=== PATIENT | male | born 1980 | race African-American/Black ===

== ENCOUNTER 2017-06-28 18:51 | Emergency (ER) | payer OTHER ==
[2017-06-28 19:23] VITALS: BP 151/74; PULSE 95; RESP 18; TEMP 99.7
--- NOTE | 2017-06-28 19:33 | ED ---
General Adult HPI - General Chief complaint: Skin/Abscess/Foreign Body Stated complaint: Inhaled Peanuts Time Seen by Provider: 06/28/17 19:25 Source: patient, RN notes reviewed Mode of arrival: ambulatory Limitations: no limitations - History of Present Illness Initial comments: 36 -year-old male presents to the emergency department with a chief complaint of concern for possible inhaled the neck. Patient states he was eating peanuts and he feels that he inhaled a peanut. Having no symptoms now cough no shortness of breath. He feels a little bit of throat irritation. No difficulty eating or drinking. Patient states that he was concerned that he may have an of the penis without that he should be seen.Patient denies any recent fever, chills, shortness of breath, chest pain, back pain, abdominal pain , nausea vomiting, numbness or tingling, dysuria or hematuria, constipation or diarrhea, headaches or visual changes, or any other current symptoms. - Related Data Allergies Allergy/AdvReac Type Severity Reaction Status Date / Time No Known Allergies Allergy Verified 06/28/17 19:17 Review of Systems ROS Statement: Those systems with pertinent positive or pertinent negative responses have been documented in the HPI. ROS Other: All systems not noted in ROS Statement are negative. Past Medical History Past Medical History: No Reported History, Sleep Apnea/CPAP/BIPAP History of Any Multi-Drug Resistant Organisms: None Reported Past Surgical History: Cholecystectomy Past Psychological History: Anxiety Smoking Status: Current every day smoker Past Alcohol Use History: None Reported Past Drug Use History: Marijuana General Exam Limitations: no limitations General appearance: alert, in no apparent distress Eye exam: Present: normal appearance, PERRL, EOMI. Absent: scleral icterus, conjunctival injection, periorbital swelling ENT exam: Present: normal exam, mucous membranes moist Neck exam: Present: normal inspection. Absent: tenderness, meningismus, lymphadenopathy Respiratory exam: Present: normal lung sounds bilaterally. Absent: respiratory distress, wheezes, rales, rhonchi, stridor Cardiovascular Exam: Present: regular rate, normal rhythm, normal heart sounds. Absent: systolic murmur, diastolic murmur, rubs, gallop, clicks Neurological exam: Present: alert, oriented X3 Psychiatric exam: Present: normal affect, normal mood Skin exam: Present: warm, dry, intact, normal color. Absent: rash Course Vital Signs 11/21/17 19:17 Temperature 99.7 F H Pulse Rate 95 Respiratory 18 Rate Blood Pressure 151/74 O2 Sat by Pulse 100 Oximetry Medical Decision Making - Medical Decision Making 36-year-old male presents emergency Department chief complaint of concern for an health unit. This time patient is asymptomatic no difficulty in breathing patient's x-rays reviewed and negative. We did discuss we cannot see this type of forgein body on x-ray typically. This time we discussed what to watch for. We discussed possible outcomes from this type of injury. We did discuss return parameters and follow-up with the patient. He stated that he understood and all his questions have been answered. This and will be discharged home. - Radiology Data Radiology results: report reviewed, image reviewed Disposition Clinical Impression: Throat irritation Disposition: HOME SELF-CARE Condition: Stable Instructions: Foreign Body in Pharynx (ED) Additional Instructions: Please use medication as discussed. Please follow up with family doctor if symptoms have not improved over the next two days. Please return to the emergency room if your symptoms increase or worsen or for any other concerns. Referrals: Gustavo Dumont MD [Primary Care Provider] - 1-2 days Time of Disposition: 19:46
--- NOTE | 2017-06-28 19:42 | XR ---
EXAMINATION TYPE: XR chest 2V DATE OF EXAM: 06/28/2017 COMPARISON: NONE HISTORY: Cough TECHNIQUE: Frontal and lateral views of the chest are obtained. FINDINGS: Heart and mediastinum are normal. Lungs are clear. Diaphragm is normal. Bony thorax is int act. There is no evidence of atelectasis. IMPRESSION: Normal chest
== END 2017-06-28 20:02 | disposition home or self-care (01) ==
LOC: EC 18:51
DX: J39.2 Other diseases of pharynx (principal); F17.200 Nicotine dependence, unspecified, uncomplicated
CPT/HCPCS: 71020; 99283

== ENCOUNTER 2018-06-16 08:13 | Emergency (ER) | payer OTHER ==
[2018-06-16 08:28] VITALS: TEMP 96.6
[2018-06-16] MEDS ORDERED: ONDANSETRON 4 MG/2 ML VIAL IVP STA (08:34)
[2018-06-16] MEDS ORDERED: SODIUM CHLORIDE 0.9% 1,000 ML IV STA (08:34)
[2018-06-16] MEDS ORDERED: KETOROLAC 30 MG/ML 1 ML VIAL IVP STA (08:34)
[2018-06-16] MEDS ORDERED: MORPHINE SULFATE 4 MG/ML SYRINGE IV STA (08:34)
--- NOTE | 2018-06-16 08:58 | ED ---
General Adult HPI - General Chief complaint: Abdominal Pain Stated complaint: Blood in urine Time Seen by Provider: 06/16/18 08:29 Source: patient, RN notes reviewed Mode of arrival: ambulatory Limitations: no limitations - History of Present Illness Initial comments: Patient 37-year-old male presented to the emergency room today with chief complaint of right sided flank pain starting this morning. He has not that he saw some hematuria yesterday. States pain started this morning is had some nausea. She states never had similar symptoms in the past. Patient denies any recent fever, chills, shortness of breath, chest pain, numbness or tingling, dysuria, headaches or visual changes, or any other complaints. - Related Data Home Medications Medication Instructions Recorded Confirmed Atorvastatin Calcium [Lipitor] 10 mg PO HS 06/16/18 06/16/18 Catalyn Vit (Unknown) 1 tab PO TID 06/16/18 HYDROcodone/APAP 10-325MG [Jeffers 1 tab PO QID 06/16/18 06/16/18 10-325] Losartan/Hydrochlorothiazide 1 tab PO DAILY 06/16/18 06/16/18 [Losartan-Hctz 100-12.5 mg Tab] Temazepam [Restoril] 15 mg PO HS 06/16/18 06/16/18 diphenhydrAMINE HCL [Benadryl] 50 mg PO HS 06/16/18 06/16/18 Previous Rx's Medication Instructions Recorded Hydrocodone/Acetaminophen [Jeffers 1 each PO Q6HR PRN #12 tab 06/16/18 5-325] Ibuprofen [Motrin] 800 mg PO Q6HR #30 tab 06/16/18 Ondansetron Odt [Zofran ODT] 4 mg PO Q8HR PRN #20 tab 06/16/18 Tamsulosin [Flomax] 0.4 mg PO DAILY #10 cap 06/16/18 Allergies Allergy/AdvReac Type Severity Reaction Status Date / Time No Known Allergies Allergy Verified 06/16/18 10:05 Review of Systems ROS Statement: Those systems with pertinent positive or pertinent negative responses have been documented in the HPI. ROS Other: All systems not noted in ROS Statement are negative. Past Medical History Past Medical History: Hyperlipidemia, Hypertension, Sleep Apnea/CPAP/BIPAP History of Any Multi-Drug Resistant Organisms: None Reported Past Surgical History: Cholecystectomy Past Psychological History: Anxiety Smoking Status: Current every day smoker Past Alcohol Use History: None Reported Past Drug Use History: Marijuana General Exam - General Exam Comments Initial Comments: General: The patient is awake and alert, in no distress, and does not appear acutely ill. Eye: There is normal conjunctiva bilaterally. No signs of icterus. Ears, nose, mouth and throat: There are moist mucous membranes and no oral lesions. Neck: The neck is supple, there is no tenderness or JVD. Cardiovascular: There is a regular rate and rhythm. No murmur, rub or gallop is appreciated. Respiratory: Lungs are clear to auscultation, respirations are non-labored, breath sounds are equal. No wheezes, stridor, rales, or rhonchi. Gastrointestinal: Soft, non-distended, non-tender abdomen without masses or organomegaly noted. There is no rebound or guarding present. No CVA tenderness. Musculoskeletal: Normal ROM, no tenderness. Sensation intact. Neurological: A&O x 3. CN II-XII intact, There are no obvious motor or sensory deficits. Coordination appears grossly intact. Speech is normal. Skin: Skin is warm and dry and no rashes or lesions are noted. Psychiatric: Cooperative, appropriate mood & affect, normal judgment. Limitations: no limitations Course Vital Signs 06/16/18 08:25 Temperature 96.6 F L Pulse Rate 69 Respiratory 22 Rate Blood Pressure 166/91 O2 Sat by Pulse 97 Oximetry Medical Decision Making - Medical Decision Making Patient reexamined at this time shows no signs of distress. He currently pain- free at this time. CT abdomen and pelvis reviewed does show a 3 mm stone in the right UPJ. Patient's urinalysis reviewed shows large blood. There are 6 white cells. Cultures pending. Patient's vitals are stable. There is no fever. Patient will be discharged home on Flomax, nausea medication, and pain medicines. Patient is advised follow-up urologist over the next 2 days of symptoms have not improved. Advised return if symptoms increase or worsen. - Lab Data Result diagrams: 06/16/18 09:15 06/16/18 09:15 Lab Results 06/16/18 06/16/18 06/16/18 Range/Units 09:08 09:15 09:15 WBC 9.1 (3.8-10.6) k/uL RBC 5.43 (4.30-5.90) m/uL Hgb 16.2 (13.0-17.5) gm/dL Hct 47.5 (39.0-53.0) % MCV 87.5 (80.0-100.0) fL MCH 29.8 (25.0-35.0) pg MCHC 34.1 (31.0-37.0) g/dL RDW 13.1 (11.5-15.5) % Plt Count 269 (150-450) k/uL Neutrophils % 61 % Lymphocytes % 25 % Monocytes % 5 % Eosinophils % 6 % Basophils % 1 % Neutrophils # 5.6 (1.3-7.7) k/uL Lymphocytes # 2.3 (1.0-4.8) k/uL Monocytes # 0.4 (0-1.0) k/uL Eosinophils # 0.6 (0-0.7) k/uL Basophils # 0.1 (0-0.2) k/uL Sodium 139 (137-145) mmol/L Potassium 4.0 (3.5-5.1) mmol/L Chloride 110 H (98-107) mmol/L Carbon Dioxide 16 L (22-30) mmol/L Anion Gap 13 mmol/L BUN 17 (9-20) mg/dL Creatinine 1.24 (0.66-1.25) mg/dL Est GFR (CKD-EPI)AfAm 85 (>60 ml/min/1.73 sqM) Est GFR (CKD-EPI)NonAf 73 (>60 ml/min/1.73 sqM) Glucose 115 H (74-99) mg/dL Calcium 10.0 (8.4-10.2) mg/dL Total Bilirubin 0.8 (0.2-1.3) mg/dL AST 24 (17-59) U/L ALT 20 L (21-72) U/L Alkaline Phosphatase 65 (38-126) U/L Total Protein 7.3 (6.3-8.2) g/dL Albumin 4.5 (3.5-5.0) g/dL Amylase 65 (30-110) U/L Lipase 117 (23-300) U/L Urine Color Red Urine Appearance Cloudy (Clear) Urine pH 5.5 (5.0-8.0) Ur Specific [place] 1.022 (1.001-1.035) Urine Protein 1+ H (Negative) Urine Glucose (UA) Negative (Negative) Urine Ketones 2+ H (Negative) Urine Blood Large H (Negative) Urine Nitrite Negative (Negative) Urine Bilirubin Negative (Negative) Urine Urobilinogen <2.0 (<2.0) mg/dL Ur Leukocyte Esterase Small H (Negative) Urine RBC >182 H (0-5) /hpf Urine WBC 6 H (0-5) /hpf Ur Squamous Epith Cells 2 (0-4) /hpf Calcium Oxalate Crystal Few H (None) /hpf Urine Mucus Occasional H (None) /hpf Disposition Clinical Impression: Kidney stone Disposition: HOME SELF-CARE Condition: Good Instructions: Kidney Stones (ED) Additional Instructions: Please use medication as discussed. Please follow-up with urology/family doctor in the next 2 days of symptoms have not improved. Please return to emergency room if the symptoms increase or worsen or for any other concerns. Prescriptions: Hydrocodone/Acetaminophen [Jeffers 5-325] 1 each PO Q6HR PRN #12 tab PRN Reason: Pain Ibuprofen [Motrin] 800 mg PO Q6HR #30 tab Ondansetron Odt [Zofran ODT] 4 mg PO Q8HR PRN #20 tab PRN Reason: Nausea Tamsulosin [Flomax] 0.4 mg PO DAILY #10 cap Is patient prescribed a controlled substance at d/c from ED?: Yes If prescribed controlled substance>3 days was MAPS reviewed?: Prescribed <3 Days Referrals: Gustavo Dumont MD [Primary Care Provider] - 1-2 days Bandar Mohan MD [STAFF PHYSICIAN] - 1-2 days Time of Disposition: 10:35
[2018-06-16 09:36] LABS: Basophils # (A) 0.1 k/uL (0-0.2); Basophils % (A) 1 %; Eosinophils # (A) 0.6 k/uL (0-0.7); Eosinophils % (A) 6 %; HCT 47.5 % (39.0-53.0); HGB 16.2 gm/dL (13.0-17.5); Lymphocytes # (A) 2.3 k/uL (1.0-4.8); Lymphocytes % (A) 25 %; MCH 29.8 pg (25.0-35.0); MCHC 34.1 g/dL (31.0-37.0); MCV 87.5 fL (80.0-100.0); Mean Platelet Volume 7.1; Monocytes # (A) 0.4 k/uL (0-1.0); Monocytes % (A) 5 %; Neutrophils # (A) 5.6 k/uL (1.3-7.7); Neutrophils % (A) 61 %; Platelet Count 269 k/uL (150-450); RBC 5.43 m/uL (4.30-5.90); RDW 13.1 % (11.5-15.5); WBC 9.1 k/uL (3.8-10.6)
--- NOTE | 2018-06-16 09:38 | XR ---
EXAMINATION TYPE: XR KUB DATE OF EXAM: 06/16/2018 COMPARISON: NONE HISTORY: Pain TECHNIQUE: One view abdominal series FINDINGS: The osseous structures are intact. The bowel gas pattern is nonspecific. Lung bases are clear. Surg ical clips in the right upper quadrant. Few prominent small bowel loops are seen in the right abdomen . Benign-appearing cyst herniation pit involving the right femoral head. No definite suspicious calci fications. IMPRESSION: 1. Nonspecific abdomen. Few prominent small bowel loops in the right abdomen correlate for ileus or enteritis. 2. No definite suspicious calcifications. Correlate with CT scan as clinically warranted.
[2018-06-16 09:47] LABS: Albumin 4.5 g/dL (3.5-5.0); Total Bilirubin 0.8 mg/dL (0.2-1.3); Total Protein 7.3 g/dL (6.3-8.2)
[2018-06-16 09:56] LABS: Appearance,Urine Cloudy (Clear); Bilirubin,Urine Negative (Negative); Blood,Urine Large (Negative); Calcium Oxalate Crystals,Urine Few /hpf; Color,Urine Red; Glucose,Urine (UA) Negative (Negative); Ketones,Urine 2+ (Negative); Leukocyte Esterase,Urine Small (Negative); Mucus,Urine Occasional /hpf; Nitrite,Urine Negative (Negative); PH, Urine 5.5 (5.0-8.0); Protein,Urine 1+ (Negative); RBC,Urine >182 /hpf (0-5); Specific Gravity,Urine 1.022 (1.001-1.035); Squamous Epithelial Cell,Urine 2 /hpf (0-4); Urobilinogen,Urine <2.0 mg/dL (<2.0)
--- NOTE | 2018-06-16 09:58 | CT ---
EXAMINATION TYPE: CT abdomen pelvis w con DATE OF EXAM: 06/16/2018 COMPARISON: None HISTORY: abdomen pain RT side CT DLP: 2609 mGycm CONTRAST: CT scan of the abdomen and pelvis is performed without Oral Contrast and with IV Contrast, patient in jected with 100 mL of Isovue 300. FINDINGS: LUNG BASES-: No visible nodule. No infiltrate. LIVER/GB: No calcified gallstones. No space occupying hepatic lesion. Biliary tree is of normal ca liber. PANCREAS: No inflammation. No distinct mass. SPLEEN: No splenic enlargement. No lesion seen. ADRENALS: No nodule. No thickening. KIDNEYS/BLADDER: 3 mm calculus proximal left ureter just distal to the UPJ resulting in mild hydronep hrosis. Mild delay in excretion right kidney. No additional calculi seen. No distinct renal mass. Ur inary bladder grossly unremarkable. BOWEL: Normal appendix. Normal bowel caliber. No inflammation. GENITAL ORGANS: No gross abnormality. LYMPH NODES: No greater than 1cm abdominal or pelvic lymph nodes are appreciated. AORTA: No significant abnormality. OSSEOUS STRUCTURES: Degenerative changes lumbar spine. OTHER: No significant additional abnormality is seen. IMPRESSION: 1. 3 mm calculus proximal left ureter just distal to the UPJ resulting in mild hydronephrosis. Mild delay in excretion right kidney.
[2018-06-16 10:40] VITALS: BP 150/81; PULSE 75; RESP 20
== END 2018-06-16 10:47 | disposition home or self-care (01) ==
LOC: EC 08:13
DX: N20.2 Calculus of kidney with calculus of ureter (principal); E78.5 Hyperlipidemia, unspecified; I10 Essential (primary) hypertension; G47.30 Sleep apnea, unspecified; F17.200 Nicotine dependence, unspecified, uncomplicated; Z79.891 Long term (current) use of opiate analgesic; Z79.899 Other long term (current) drug therapy; Z99.89 Dependence on other enabling machines and devices; Z90.49 Acquired absence of other specified parts of digestive tract
CPT/HCPCS: 36415; 80053; 82150; 83690; 85025; 81001; 87086; 74018; 74177; 99284; 96374; 96375 ×2; 96361; J2270; J2405; J1885; Q9967

== ENCOUNTER 2019-09-15 12:55 | Emergency (ER) | payer OTHER ==
[2019-09-15 13:05] VITALS: TEMP 97.3
[2019-09-15] MEDS ORDERED: ONDANSETRON 4 MG/2 ML VIAL IVP STA (13:16)
[2019-09-15] MEDS ORDERED: MORPHINE SULFATE 4 MG/ML SYRINGE IV STA (13:16)
--- NOTE | 2019-09-15 13:33 | ED ---
General Adult HPI - General Chief complaint: Abdominal Pain Stated complaint: right leg numbness/abd pain Time Seen by Provider: 09/15/19 12:55 Source: patient Mode of arrival: wheelchair Limitations: no limitations - History of Present Illness Initial comments: The patient is a 39-year-old male with past medical history of hypertension, not currently on medications who presents to the emergency room with reported right leg numbness. Also admits to mild right arm numbness. Patient states that his leg has felt heavy for the past hour. He is also complaining of abdominal pain. States that it is a sharp shooting sensation in his abdomen. Denies tearing to his back. Denies any chest pain or shortness of breath. Denies any headaches or visual changes. No fevers or chills. Denies cough. Does admit to mild shortness of breath. Any changes in his bowel or bladder habits. Did have a towel movement before he came in. He has a history of hypertension and is not taking his medications. Patient denies extremity diaphoretic. He is extremely hypertensive and is difficult to obtain a blood pressure in his right arm. There are no alleviating, precipitating or modifying factors - Related Data Home Medications Medication Instructions Recorded Confirmed Atorvastatin Calcium [Lipitor] 10 mg PO HS 06/16/18 06/16/18 Catalyn Vit (Unknown) 1 tab PO TID 06/16/18 HYDROcodone/APAP 10-325MG [[place] 1 tab PO QID 06/16/18 06/16/18 10-325] Losartan/Hydrochlorothiazide 1 tab PO DAILY 06/16/18 06/16/18 [Losartan-Hctz 100-12.5 mg Tab] Temazepam [Restoril] 15 mg PO HS 06/16/18 06/16/18 diphenhydrAMINE HCL [Benadryl] 50 mg PO HS 06/16/18 06/16/18 Previous Rx's Medication Instructions Recorded Hydrocodone/Acetaminophen [[place] 1 each PO Q6HR PRN #12 tab 06/16/18 5-325] Ibuprofen [Motrin] 800 mg PO Q6HR #30 tab 06/16/18 Ondansetron Odt [Zofran ODT] 4 mg PO Q8HR PRN #20 tab 06/16/18 Tamsulosin [Flomax] 0.4 mg PO DAILY #10 cap 06/16/18 Allergies Allergy/AdvReac Type Severity Reaction Status Date / Time No Known Allergies Allergy Verified 06/16/18 10:05 Review of Systems ROS Statement: Those systems with pertinent positive or pertinent negative responses have been documented in the HPI. ROS Other: All systems not noted in ROS Statement are negative. Past Medical History Past Medical History: Hyperlipidemia, Hypertension, Sleep Apnea/CPAP/BIPAP History of Any Multi-Drug Resistant Organisms: None Reported Past Surgical History: Cholecystectomy Past Psychological History: Anxiety Smoking Status: Current every day smoker Past Alcohol Use History: None Reported Past Drug Use History: Marijuana General Exam Limitations: no limitations General appearance: alert, anxious, other (Extremity diaphoretic) Head exam: Present: atraumatic, normocephalic, normal inspection Eye exam: Present: normal appearance, PERRL, EOMI. Absent: scleral icterus, conjunctival injection, periorbital swelling ENT exam: Present: normal exam, mucous membranes moist Neck exam: Present: normal inspection. Absent: tenderness, meningismus, lymphadenopathy Respiratory exam: Present: normal lung sounds bilaterally, other (tachypneic). Absent: respiratory distress, wheezes, rales, rhonchi, stridor Cardiovascular Exam: Present: regular rate, normal rhythm, bradycardia, normal heart sounds. Absent: systolic murmur, diastolic murmur, rubs, gallop, clicks GI/Abdominal exam: Present: soft, tenderness (Upper quadrant). Absent: distended, guarding, rebound, rigid Extremities exam: Present: other (no palpable or doppler pulses in his DP, PT, popliteals or even iliacs. Bilateral lower extremity is or warm to the touch.) Back exam: Present: normal inspection Course Vital Signs 09/15/19 09/15/19 09/15/19 12:56 14:03 14:06 Temperature 97.3 F L Pulse Rate 54 L 58 L 60 Respiratory 40 H 18 20 Rate Blood Pressure 227/66 O2 Sat by Pulse 100 100 100 Oximetry 09/15/19 09/15/19 09/15/19 14:19 14:38 14:45 Temperature Pulse Rate 68 65 71 Respiratory 20 18 22 Rate Blood Pressure 161/71 O2 Sat by Pulse 99 100 100 Oximetry 09/15/19 09/15/19 09/15/19 14:55 15:03 15:07 Temperature Pulse Rate 73 68 68 Respiratory 22 18 Rate Blood Pressure 200/177 187/63 O2 Sat by Pulse 100 100 Oximetry 09/15/19 09/15/19 09/15/19 15:09 15:15 15:21 Temperature Pulse Rate 71 67 70 Respiratory 18 18 Rate Blood Pressure 183/59 180/97 156/58 O2 Sat by Pulse 100 100 100 Oximetry 09/15/19 09/15/19 09/15/19 15:28 15:31 15:36 Temperature Pulse Rate 68 69 70 Respiratory 16 18 181 H Rate Blood Pressure 154/100 162/64 158/65 O2 Sat by Pulse 100 99 Oximetry 09/15/19 15:50 Temperature Pulse Rate 73 Respiratory Rate Blood Pressure 146/73 O2 Sat by Pulse 100 Oximetry EKG Findings - EKG Comments: EKG Findings:: EKG demonstrates a sinus bradycardia with ventricular rate of 58. NM interval 156. QRS 98. QTC of 418. Inverted T waves in 1, 2 and aVF. Also in V5 and V6. No acute ST segment elevations. Procedures - Arterial Line No standard instances Consent Obtained: emergent situation Size (Gauge): 20 Technique Used: guide wire technique Post-Procedure: line sutured into place Patient Tolerated Procedure: well, no complications Complications: none Medical Decision Making - Medical Decision Making Upon arrival the patient was promptly placed in trauma bay 1. A history and physical exam is performed. He does not have palpable pulses in his bilateral lower extremities. Because of this I immediately sent the patient over for CT of his abdomen and pelvis. Upon return I did review the images myself and it does demonstrate a type A dissection. Patient was immediately placed on a Cardene and esmolol drip. We did titrate the medications however the patient continues have an elevated blood pressure. I then ordered a nitroprusside drip. I placed a radial line and the patient's left arm. Discussed the case with Glynn Henderson at 2:05 pm. Patient is refused as the cardiothoracic surgeon is in the OR. Discuss the case with [facility] at 2:11 pm. Patient is refused as I am told they do not take Type A dissections. Discussed the case with [facility] at 2:21 pm and they stated that they were unsure if they could take the patient and they will call us back The case with [facility] who accepted the patient. Accepting Doctor is Dr. Inman. EMS arrived and felt the patients status was more critical that what they felt comfortable with. They are requesting a nurse to travel with them. Chata the charge nurse does agree to help transport the patient. Patient sent lights and sirens there. - Lab Data Result diagrams: 09/15/19 13:19 09/15/19 13:19 Lab Results 09/15/19 09/15/19 09/15/19 Range/Units 13:15 13:19 13:19 WBC 12.4 H (3.8-10.6) k/uL RBC 5.24 (4.30-5.90) m/uL Hgb 15.7 (13.0-17.5) gm/dL Hct 48.3 (39.0-53.0) % MCV 92.3 (80.0-100.0) fL MCH 30.1 (25.0-35.0) pg MCHC 32.6 (31.0-37.0) g/dL RDW 13.5 (11.5-15.5) % Plt Count 202 (150-450) k/uL Neutrophils % 58 % Lymphocytes % 28 % Monocytes % 3 % Eosinophils % 7 % Basophils % 2 % Neutrophils # 7.1 (1.3-7.7) k/uL Lymphocytes # 3.4 (1.0-4.8) k/uL Monocytes # 0.4 (0-1.0) k/uL Eosinophils # 0.8 H (0-0.7) k/uL Basophils # 0.2 (0-0.2) k/uL PT (9.0-12.0) sec INR (<1.2) APTT (22.0-30.0) sec Sodium 138 (137-145) mmol/L Potassium 3.3 L (3.5-5.1) mmol/L Chloride 107 (98-107) mmol/L Carbon Dioxide 16 L (22-30) mmol/L Anion Gap 15 mmol/L BUN 10 (9-20) mg/dL Creatinine 1.28 H (0.66-1.25) mg/dL Est GFR (CKD-EPI)AfAm 80 (>60 ml/min/1.73 sqM) Est GFR (CKD-EPI)NonAf 69 (>60 ml/min/1.73 sqM) Glucose 167 H (74-99) mg/dL Lactic Ac Sepsis Rflx Plasma Lactic Acid Ibrahima (0.7-2.0) mmol/L Calcium 9.7 (8.4-10.2) mg/dL Total Bilirubin 0.9 (0.2-1.3) mg/dL AST 37 (17-59) U/L ALT 19 (4-49) U/L Alkaline Phosphatase 79 (38-126) U/L Troponin I (0.000-0.034) ng/mL Total Protein 7.2 (6.3-8.2) g/dL Albumin 4.5 (3.5-5.0) g/dL Lipase 121 (23-300) U/L Blood Type Blood Type Confirm B Positive Blood Type Recheck Bld Type Recheck Status Antibody Screen Spec Expiration Date 09/15/19 09/15/19 09/15/19 Range/Units 13:19 13:19 13:19 WBC (3.8-10.6) k/uL RBC (4.30-5.90) m/uL Hgb (13.0-17.5) gm/dL Hct (39.0-53.0) % MCV (80.0-100.0) fL MCH (25.0-35.0) pg MCHC (31.0-37.0) g/dL RDW (11.5-15.5) % Plt Count (150-450) k/uL Neutrophils % % Lymphocytes % % Monocytes % % Eosinophils % % Basophils % % Neutrophils # (1.3-7.7) k/uL Lymphocytes # (1.0-4.8) k/uL Monocytes # (0-1.0) k/uL Eosinophils # (0-0.7) k/uL Basophils # (0-0.2) k/uL PT 9.8 (9.0-12.0) sec INR 0.9 (<1.2) APTT 22.4 (22.0-30.0) sec Sodium (137-145) mmol/L Potassium (3.5-5.1) mmol/L Chloride (98-107) mmol/L Carbon Dioxide (22-30) mmol/L Anion Gap mmol/L BUN (9-20) mg/dL Creatinine (0.66-1.25) mg/dL Est GFR (CKD-EPI)AfAm (>60 ml/min/1.73 sqM) Est GFR (CKD-EPI)NonAf (>60 ml/min/1.73 sqM) Glucose (74-99) mg/dL Lactic Ac Sepsis Rflx Plasma Lactic Acid Ibrahima 8.8 H* (0.7-2.0) mmol/L Calcium (8.4-10.2) mg/dL Total Bilirubin (0.2-1.3) mg/dL AST (17-59) U/L ALT (4-49) U/L Alkaline Phosphatase (38-126) U/L Troponin I 0.019 (0.000-0.034) ng/mL Total Protein (6.3-8.2) g/dL Albumin (3.5-5.0) g/dL Lipase (23-300) U/L Blood Type Blood Type Confirm Blood Type Recheck Bld Type Recheck Status Antibody Screen Spec Expiration Date 09/15/19 09/15/19 Range/Units 13:19 13:55 WBC (3.8-10.6) k/uL RBC (4.30-5.90) m/uL Hgb (13.0-17.5) gm/dL Hct (39.0-53.0) % MCV (80.0-100.0) fL MCH (25.0-35.0) pg MCHC (31.0-37.0) g/dL RDW (11.5-15.5) % Plt Count (150-450) k/uL Neutrophils % % Lymphocytes % % Monocytes % % Eosinophils % % Basophils % % Neutrophils # (1.3-7.7) k/uL Lymphocytes # (1.0-4.8) k/uL Monocytes # (0-1.0) k/uL Eosinophils # (0-0.7) k/uL Basophils # (0-0.2) k/uL PT (9.0-12.0) sec INR (<1.2) APTT (22.0-30.0) sec Sodium (137-145) mmol/L Potassium (3.5-5.1) mmol/L Chloride (98-107) mmol/L Carbon Dioxide (22-30) mmol/L Anion Gap mmol/L BUN (9-20) mg/dL Creatinine (0.66-1.25) mg/dL Est GFR (CKD-EPI)AfAm (>60 ml/min/1.73 sqM) Est GFR (CKD-EPI)NonAf (>60 ml/min/1.73 sqM) Glucose (74-99) mg/dL Lactic Ac Sepsis Rflx Y Plasma Lactic Acid Ibrahima (0.7-2.0) mmol/L Calcium (8.4-10.2) mg/dL Total Bilirubin (0.2-1.3) mg/dL AST (17-59) U/L ALT (4-49) U/L Alkaline Phosphatase (38-126) U/L Troponin I (0.000-0.034) ng/mL Total Protein (6.3-8.2) g/dL Albumin (3.5-5.0) g/dL Lipase (23-300) U/L Blood Type B Positive Blood Type Confirm Blood Type Recheck No Previous Record Bld Type Recheck Status CABO Indicated Antibody Screen NEGATIVE Spec Expiration Date 09/18/2019 - 9928 Critical Care Time Critical Care Time: Yes Critical Care Time: 45 minutes. Patients critical status recognized as soon as he was triaged. He was brought to the trauma bay immediately and after physical exam was sent directly for imaging without awaiting labs. Dissection was recognized on scans and I began calling several facilities to accept the patient. I had refusal from [facility] and [facility] prior to receiving acceptance at [facility]. Disposition Clinical Impression: Dissection of aorta Disposition: HOME SELF-CARE Condition: Critical Is patient prescribed a controlled substance at d/c from ED?: No Referrals: Gustavo Dumont MD [Primary Care Provider] - 1-2 days - Out of Hospital Transfer - Req. Specs Out of Hospital Transfer - Requested Specifics: Other Emergency Center ([facility])
[2019-09-15 13:45] LABS: Basophils # (A) 0.2 k/uL (0-0.2); Basophils % (A) 2 %; Eosinophils # (A) 0.8 k/uL (0-0.7); Eosinophils % (A) 7 %; HCT 48.3 % (39.0-53.0); HGB 15.7 gm/dL (13.0-17.5); Lymphocytes # (A) 3.4 k/uL (1.0-4.8); Lymphocytes % (A) 28 %; MCH 30.1 pg (25.0-35.0); MCHC 32.6 g/dL (31.0-37.0); MCV 92.3 fL (80.0-100.0); Mean Platelet Volume 8.5; Monocytes # (A) 0.4 k/uL (0-1.0); Monocytes % (A) 3 %; Neutrophils # (A) 7.1 k/uL (1.3-7.7); Neutrophils % (A) 58 %; Platelet Count 202 k/uL (150-450); RBC 5.24 m/uL (4.30-5.90); RDW 13.5 % (11.5-15.5); WBC 12.4 k/uL (3.8-10.6)
[2019-09-15 13:50] LABS: Albumin 4.5 g/dL (3.5-5.0); Calcium 9.7 mg/dL (8.4-10.2); Total Bilirubin 0.9 mg/dL (0.2-1.3); Total Protein 7.2 g/dL (6.3-8.2)
[2019-09-15] MEDS ORDERED: niCARdipine 20 MG in SODIUM CHLORIDE 0.9% 192 ML IV ONE (13:50)
[2019-09-15] MEDS ORDERED: fentaNYL (PF) 50 MCG/ML 2 ML AMP IVP STA ×2 (13:51→14:51)
[2019-09-15] MEDS ORDERED: ESMOLOL IN SODIUM CHLORIDE PMX 2.5 GM in SALINE 1 250ML.BAG IV ONE (13:52)
[2019-09-15 13:54] LABS: INR 0.9 (<1.2); Partial Thromboplastin Time 22.4 sec (22.0-30.0); Potassium 3.3 mmol/L (3.5-5.1); Prothrombin Time 9.8 sec (9.0-12.0)
--- NOTE | 2019-09-15 14:05 | CT ---
EXAMINATION TYPE: CT brain wo con DATE OF EXAM: 09/15/2019 COMPARISON: None HISTORY: Right leg numbness with lack of pulse. CT DLP: 1169 mGycm Automated exposure control for dose reduction was used. Ventricles have normal size. There is no mass effect nor midline shift. There is no sign of intracran ial hemorrhage. There is mucosal thickening in the maxillary sinuses. Calvarium is intact. There is n o evidence of cerebral edema. IMPRESSION: Negative CT scan of the brain. Maxillary sinusitis. Mild ethmoid sinusitis.
[2019-09-15] MEDS ORDERED: HYDROmorphone 1 MG/ML 1 ML SYRINGE ONE (14:24)
[2019-09-15] MEDS: HYDROmorphone 1 MG/ML 1 ML SYRINGE IVP PRN ×2 (14:25→14:29)
--- NOTE | 2019-09-15 14:36 | CT ---
EXAMINATION TYPE: CT angio thor/abd pel aorta DATE OF EXAM: 09/15/2019 COMPARISON: None HISTORY: Abdominal pain with Loss of pulse Right leg. CT DLP: 4500.4 mGycm Automated exposure control for dose reduction was used. CONTRAST: Performed without and with IV Contrast, patient injected with 100 mL of Isovue 370. Multiple axial sections were obtained from the thoracic inlet to the floor the pelvis without and sub sequently with intravenous contrast Isovue 100 mL. 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 There is no mediastinal adenopathy. There is lucent line within the lumen of the thoracic aorta related to dissection at appears to originate in the root of the ascending aorta. Dissection extends into the descending thoracic aorta down to the diaphragm. The false lumen shows enhancement equal to the true lumen. There is patency of the celiac artery and superior mesenteric artery. There is bilateral arterial vanna w in the renal arteries. There is 5 x 2 cm area of decreased enhancement lower pole of the right kidn ey consistent with an infarct. Exam is limited slightly by motion. There is arterial flow in the comm on iliac arteries. There is also slight plaque in the iliac arteries. There is plaque formation on th e anterior wall of the common iliac artery on the right side that could relate to a localized dissect ion. There is bilateral arterial flow in the external iliac arteries and femoral arteries. The bladder distends smoothly. There is no inguinal hernia. There is no mesenteric edema. There is no ascites or free air. There is no sign of a bowel obstruction. Appendix appears normal. Liver is intact. Spleen is intact. There is no pancreatic mass. Stomach is intact. The lungs are seth r of infiltrate. There is no evidence of a pulmonary mass. There is no pleural effusion. Thoracic and lumbar spine are intact. 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 There is possible dissection of t he right common iliac artery. 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 This could be acute. There is plaque formation at the origins of the iliac arteries. There degree of stenosis is not well evaluated due to motion. There is contrast in the femoral arteries bilaterally but the flow rate is not evaluated by this exam. The di ssection of the aorta probably extends into the abdominal aorta but is not well evaluated due to marko on. Emergency room reception clerk was contacted and the medical staff is aware of this patient's dissectio n. Contact was 2:30 PM.
[2019-09-15] MEDS ORDERED: ESMOLOL 100 MG/10 ML VIAL IV STA ×2 (14:56→15:00)
[2019-09-15] MEDS ORDERED: NITROPRUSSIDE 50 MG in DEXTROSE 5% IN WATER 250 ML IV SCH ×2 (15:00)
[2019-09-15 15:38] VITALS: RESP 181
[2019-09-15 15:52] VITALS: BP 146/73; PULSE 73
--- NOTE | 2019-09-25 00:47 | CDI ---
Dear Alejandra Haas DO: Please do addendum clarification on patient's disposition is "HOME" or "Transfer." Thank You, Claudia Oakley, Teletype Installer. If you have any questions, please contact [facility] at [phone]. [facility]
== END 2019-09-15 16:00 | disposition short-term general hospital (02) ==
LOC: EC 12:55
DX: I71.01 Dissection of thoracic aorta (principal); I10 Essential (primary) hypertension; R61 Generalized hyperhidrosis; R00.1 Bradycardia, unspecified; E78.5 Hyperlipidemia, unspecified; G47.30 Sleep apnea, unspecified; F41.9 Anxiety disorder, unspecified; F17.200 Nicotine dependence, unspecified, uncomplicated; Z79.891 Long term (current) use of opiate analgesic; Z79.899 Other long term (current) drug therapy; Z99.89 Dependence on other enabling machines and devices
CPT/HCPCS: 99291 ×2; 36620 ×2; 96365 ×4; 96366 ×2; 96376 ×4; 96375 ×7; 96368 ×2; 36415; 93005; 86900; 86901; 80053; 83605; 83690; 84484; 85025; 85610; 85730; 86850; 70450; 71275; 74174; J2270; J2405; J3010; J1170; Q9967

== ENCOUNTER → 2020-01-22 | Outpatient (CLI) | payer OTHER ==
--- NOTE | 2020-01-22 12:14 | NM ---
EXAMINATION TYPE: NM bone 3 phase DATE OF EXAM: 01/22/2020 COMPARISON: NONE HISTORY: Sacral ulcer nonhealing for 4 months Triple phase bone scintigraphy was performed following the injection of 26.7 mCi Tc 99m MDP. Immedia te images and 4 hours post injection images acquired. FINDINGS: There is some mild increased uptake noted at the level of the sacrum. No other abnormal uptake. IMPRESSION: Equivocal uptake at the level of the sacrum could be indicative of osteomyelitis, MRI May be confirma tory.
== END | disposition home or self-care (01) ==
LOC: RADNMMAIN 07:08
PROVIDERS: ATTEND Thoracic Surgery (Cardiothoracic Vascular Surgery)
DX: L89.153 Pressure ulcer of sacral region, stage 3 (principal)
CPT/HCPCS: 78315; A9503

== ENCOUNTER → 2020-02-05 | Day surgery (SDC) | payer OTHER ==
[2020-02-04 09:34] VITALS: BMI 34.0
[~2020-02-05] MED LIST: DEXAMETHASONE SOD PHOSPHATE 10 MG/ML 1 ML VIAL IV ONE; HYDROmorphone 0.5 MG/0.5 ML SYRINGE IVP PRN; LACTATED RINGERS 1,000 ML IV ONE; LACTATED RINGERS 1,000 ML IV SCH; LIDOCAINE 1% INJ 10MG/ML (20 ML MDV) ONE; MIDAZOLAM 2 MG/2 ML VIAL ONE; ONDANSETRON 4 MG/2 ML VIAL IVP ONE; ONDANSETRON 4 MG/2 ML VIAL ONE; PROPOFOL 10 MG/ML 20 ML VIAL IV ONE; Pre Op ABX Message 1 EACH MISC MISCELLANE ONE; SUCCINYLCHOLINE CHLORIDE 100 MG/5 ML SYR IV ONE; ceFAZolin 1,000 MG VIAL ONE; fentaNYL (PF) 50 MCG/ML 2 ML AMP ONE
[2020-02-05 07:36] VITALS: TEMP 97.8
--- NOTE | 2020-02-05 08:24 | P.GSHP ---
History of Present Illness H&P Date: 02/05/20 Chief Complaint: Nonhealing sacral decubitus Patient has had a sacral decubitus for several months since having had an aortic dissection repair. 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 Bone scan has been marginal for sacral bone involvement however on physical examination there is felt to be soft bone at the base of the ulcer. - Constitutional Constitutional: Denies chills, Denies fever - EENT Eyes: denies blurred vision, denies pain Ears, nose, mouth and throat: Denies headache, Denies sore throat - Cardiovascular Cardiovascular: Denies chest pain, Denies shortness of breath - Respiratory Respiratory: Denies cough, Denies 7 - Gastrointestinal Gastrointestinal: Denies abdominal pain, Denies diarrhea, Denies nausea, Denies vomiting - Genitourinary (Female) Genitourinary: Denies dysuria, Denies hematuria - Genitourinary (Male) Genitourinary: Denies dysuria, Denies hematuria - Musculoskeletal Musculoskeletal: Denies myalgias - Integumentary Integumentary: Denies pruritus, Denies rash - Neurological Neurological: Denies numbness, Denies weakness - Psychiatric Psychiatric: Denies anxiety, Denies depression - Endocrine Endocrine: Denies fatigue, Denies weight change Past Medical History Past Medical History: Deep Vein Thrombosis (DVT), Hyperlipidemia, Hypertension, Skin Disorder, Sleep Apnea/CPAP/BIPAP Additional Past Medical History / Comment(s): 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 Has CPAP, no using now. History of Any Multi-Drug Resistant Organisms: None Reported Past Surgical History: Cholecystectomy Additional Past Surgical History / Comment(s): Aortic dissection surgery 09/15/19 Past Anesthesia/Blood Transfusion Reactions: No Reported Reaction Smoking Status: Never smoker - Past Family History Mother Family Medical History: No Reported History Medications and Allergies Home Medications Medication Instructions Recorded Confirmed Type ALPRAZolam [Xanax] 0.5 mg PO DIRECTED PRN 02/04/20 02/04/20 History Aspirin [Adult Low Dose Aspirin EC] 81 mg PO BID 02/04/20 02/04/20 History Digoxin [Lanoxin] 0.125 mcg PO TUTHSA 02/04/20 02/04/20 History Ferrous Sulfate [Feosol] 325 mg PO DAILY 02/04/20 02/04/20 History Metoprolol Succinate [Toprol XL] 200 mg PO DAILY 02/04/20 02/04/20 History Multivitamin [Multivitamins Adult 1 each PO DAILY 02/04/20 02/04/20 History Gummies] amLODIPine BESYLATE 5 mg PO BID 02/04/20 02/04/20 History cloNIDine HCL [Catapres] 0.1 mg PO TID 02/04/20 02/04/20 History oxyCODONE-APAP 10-325MG [Percocet 1 tab PO Q6HR PRN 02/04/20 02/04/20 History 10-325 mg] Allergies Allergy/AdvReac Type Severity Reaction Status Date / Time No Known Allergies Allergy Verified 02/04/20 09:00 Surgical - Exam Osteopathic Statement: *. No significant issues noted on an osteopathic structural exam other than those noted in the History and Physical/Consult. Vital Signs Temp Pulse Resp BP Pulse Ox 97.8 F 67 18 157/76 99 02/05/20 07:20 02/05/20 07:20 02/05/20 07:20 02/05/20 07:20 02/05/20 07:20 - General well developed, well nourished, no distress - Eyes normal ocular movement, no icteric - ENT no hearing loss, no congestion - Neck no masses, trachea midline - Respiratory normal respiratory effort, clear to auscultation - Abdomen Abdomen: soft, non tender, no guarding, no rigid, no rebound - Integumentary no rash, no abnormal pigmentation - Neurologic no disoriented, no combative - Musculoskeletal normal gait, normal posture - Psychiatric oriented to time, oriented to person, oriented to place, speech is normal, memory intact Patient has a small acute over the sacrum however it probes to the depth of the sacral bone. Assessment and Plan (1) Decubitus ulcer of sacral region, stage 4 Current Visit: Yes Status: Acute Code(s): L89.154 - PRESSURE ULCER OF SACRAL REGION, STAGE 4 SNOMED Code(s): 463831912 Plan: I discussed with the patient in detail the options for therapy. He verbalizes in agreement with the options and the risks involved we will proceed with debridement of the ulcer including portions of soft bone. He'll be seen tomorrow in wound care where we will arrange for a wound VAC.
--- NOTE | 2020-02-05 09:03 | P.OP ---
Date of Procedure: 02/05/20 Preoperative Diagnosis: Nonhealing sacral decubitus Postoperative Diagnosis: Same Procedure(s) Performed: Sacral decubitus debridement including bone Anesthesia: CAIO Surgeon: Dutch Beal Estimated Blood Loss (ml): 30 Pathology: other (Foreign body probably bone sent for pathology and bone sent for culture as well as deep tissue culture) Condition: stable Disposition: PACU Indications for Procedure: The patient had a chronic nonhealing sacral decubitus Operative Findings: We found the fistulous tract to have at the base a portion of what felt like bone. Description of Procedure: With the patient in prone position under benefit of general anesthesia we prepped and draped in standard fashion. We enlarged the fistulous tract superiorly we then grasped the foreign bodies out of the wound with a rongeur. We then cleaned up the rest of the tract with a curet. Hemostasis was accomplished with electrocautery and with direct pressure. The initial wound measured 1 cm x 1 cm and was 3 and half centimeters in depth. Following debridement the wound was 4 cm x 2 cm and 3-1/2 cm in depth. The patient tolerated the procedure well and was taken recovery area in stable condition.
[2020-02-05 10:13] VITALS: BP 149/71; PULSE 52; RESP 17
== END ==
LOC: OR 07:02
PROVIDERS: ATTEND Thoracic Surgery (Cardiothoracic Vascular Surgery)
DX: L89.154 Pressure ulcer of sacral region, stage 4 (principal); Z86.718 Personal history of other venous thrombosis and embolism; E78.5 Hyperlipidemia, unspecified; I10 Essential (primary) hypertension; G47.30 Sleep apnea, unspecified; Z90.49 Acquired absence of other specified parts of digestive tract; Z86.79 Personal history of other diseases of the circulatory system; Z79.82 Long term (current) use of aspirin; Z79.899 Other long term (current) drug therapy
CPT/HCPCS: 87070; 87205; 87075; 11044; J2250; J1100; J2405; J0690; J2001; J3010; J0330; J2704; 88304; 88311

== ENCOUNTER 2020-10-16 23:02 | Emergency (ER) | payer OTHER ==
[2020-10-16 23:24] VITALS: RESP 16
--- NOTE | 2020-10-16 23:38 | ED ---
Arrhythmia/Palpitations HPI - General Chief Complaint: Arrhythmia/Palpitations Stated Complaint: Hypertension Time Seen by Provider: 10/16/20 23:36 Source: patient, EMS Mode of arrival: EMS Limitations: no limitations - History of Present Illness Initial Comments: This patient is a 40-year-old man who presents with complaint that his heart was racing and his blood pressure was elevated tonight. The patient states that he had has not had his blood pressure medication for approximately day and a half. It was being refilled and then he had forgotten taken at. He states that he checked his pressure tonight and it was somewhat high and then as she was rechecking it is heart rate and his blood pressure were increasing. The patient states that he felt like he was getting anxious as well so he presented here to be evaluated. The patient did take his blood pressure medication when he realized he had forgotten it. He states that he is now feeling better. He does have history of aortic repair following dissection. He is denying any pain in the chest, dyspnea, diaphoresis, nausea or vomiting. No abdominal pain. No other symptoms. MD Complaint: rapid heart beat -: hour(s) Context: occurred during rest Arrhythmia History: other Associated Symptoms: anxiety Treatments Prior to Arrival: other - Related Data Home Medications Medication Instructions Recorded Confirmed ALPRAZolam [Xanax] 0.5 mg PO DIRECTED PRN 02/04/20 02/04/20 Aspirin [Adult Low Dose Aspirin EC] 81 mg PO BID 02/04/20 02/04/20 Digoxin [Lanoxin] 0.125 mcg PO TUTHSA 02/04/20 02/04/20 Ferrous Sulfate [Feosol] 325 mg PO DAILY 02/04/20 02/04/20 Metoprolol Succinate [Toprol XL] 200 mg PO DAILY 02/04/20 02/04/20 Multivitamin [Multivitamins Adult 1 each PO DAILY 02/04/20 02/04/20 Gummies] amLODIPine BESYLATE 5 mg PO BID 02/04/20 02/04/20 cloNIDine HCL [Catapres] 0.1 mg PO TID 02/04/20 02/04/20 oxyCODONE-APAP 10-325MG [Percocet 1 tab PO Q6HR PRN 02/04/20 02/04/20 10-325 mg] Allergies Allergy/AdvReac Type Severity Reaction Status Date / Time No Known Allergies Allergy Verified 10/16/20 23:24 Review of Systems ROS Statement: Those systems with pertinent positive or pertinent negative responses have been documented in the HPI. ROS Other: All systems not noted in ROS Statement are negative. Constitutional: Denies: fever, chills Respiratory: Denies: cough, dyspnea Cardiovascular: Reports: palpitations. Denies: chest pain, orthopnea, edema, syncope Gastrointestinal: Denies: abdominal pain, nausea, vomiting Genitourinary: Denies: dysuria, hematuria Musculoskeletal: Denies: back pain Skin: Denies: rash Neurological: Denies: headache, weakness, numbness Psychiatric: Reports: anxiety Past Medical History Past Medical History: Hyperlipidemia, Hypertension, Sleep Apnea/CPAP/BIPAP Additional Past Medical History / Comment(s): aortic disection History of Any Multi-Drug Resistant Organisms: None Reported Past Surgical History: Cholecystectomy Past Psychological History: Anxiety Smoking Status: Never smoker Past Alcohol Use History: None Reported Past Drug Use History: Marijuana General Exam Limitations: no limitations General appearance: alert, in no apparent distress Head exam: Present: atraumatic, normocephalic Eye exam: Present: normal appearance. Absent: scleral icterus, conjunctival injection Neck exam: Present: normal inspection Respiratory exam: Present: normal lung sounds bilaterally. Absent: respiratory distress, wheezes, rales, rhonchi, stridor Cardiovascular Exam: Present: regular rate, normal rhythm, normal heart sounds. Absent: systolic murmur, diastolic murmur, rubs, gallop GI/Abdominal exam: Present: soft. Absent: distended, tenderness, guarding, rebound, rigid Extremities exam: Present: normal inspection, normal capillary refill. Absent: pedal edema, calf tenderness Back exam: Present: normal inspection. Absent: CVA tenderness (R), CVA tenderness (L) Neurological exam: Present: alert Skin exam: Present: warm, dry, intact, normal color. Absent: rash Course Vital Signs 10/16/20 23:15 Temperature 98.5 F Pulse Rate 85 Respiratory 16 Rate Blood Pressure 150/77 O2 Sat by Pulse 97 Oximetry EKG Findings - EKG Comments: EKG Findings:: Possible old anteroseptal infarct. - EKG Results: EKG: interpreted by ERMD, sinus rhythm (Rate 88 bpm), normal axis - Blocks, Gravelly, Hypertrophy, ST Abn: AV and intraventricular conduction: 1 AV block Repolarization changes or abnormalities: nonspecific abnormality, ST segment, and/or T wave Medical Decision Making - Medical Decision Making Patient's 40-year-old man here for palpitations and hypertension. He did take his home medication prior to coming and when I am assessing him, his heart rate is in the low 80s and his blood pressure was in the 120s over 70s. He has not had any chest symptoms and he is feeling better and would like to go home. We discussed appropriate further care and follow-up. - Lab Data Result diagrams: 10/16/20 23:45 10/16/20 23:45 Lab Results 10/16/20 10/16/20 10/16/20 Range/Units 23:45 23:45 23:45 WBC 12.5 H (3.8-10.6) k/uL RBC 4.65 (4.30-5.90) m/uL Hgb 14.1 (13.0-17.5) gm/dL Hct 41.9 (39.0-53.0) % MCV 90.2 (80.0-100.0) fL MCH 30.4 (25.0-35.0) pg MCHC 33.7 (31.0-37.0) g/dL RDW 13.6 (11.5-15.5) % Plt Count 197 (150-450) k/uL MPV 7.3 Neutrophils % 79 % Lymphocytes % 11 % Monocytes % 4 % Eosinophils % 5 % Basophils % 1 % Neutrophils # 9.8 H (1.3-7.7) k/uL Lymphocytes # 1.4 (1.0-4.8) k/uL Monocytes # 0.6 (0-1.0) k/uL Eosinophils # 0.6 (0-0.7) k/uL Basophils # 0.1 (0-0.2) k/uL Sodium 136 L (137-145) mmol/L Potassium 3.3 L (3.5-5.1) mmol/L Chloride 104 (98-107) mmol/L Carbon Dioxide 21 L (22-30) mmol/L Anion Gap 11 mmol/L BUN 15 (9-20) mg/dL Creatinine 1.00 (0.66-1.25) mg/dL Est GFR (CKD-EPI)AfAm >90 (>60 ml/min/1.73 sqM) Est GFR (CKD-EPI)NonAf >90 (>60 ml/min/1.73 sqM) Glucose 125 H (74-99) mg/dL Calcium 9.2 (8.4-10.2) mg/dL Magnesium 1.8 (1.6-2.3) mg/dL Total Bilirubin 0.4 (0.2-1.3) mg/dL AST 25 (17-59) U/L ALT 20 (4-49) U/L Alkaline Phosphatase 64 (38-126) U/L Troponin I <0.012 (0.000-0.034) ng/mL Total Protein 6.5 (6.3-8.2) g/dL Albumin 4.0 (3.5-5.0) g/dL Disposition Clinical Impression: Hypertension Disposition: HOME SELF-CARE Condition: Good Instructions (If sedation given, give patient instructions): Hypertension (ED) Is patient prescribed a controlled substance at d/c from ED?: No Referrals: Gustavo Dumont MD [Primary Care Provider] - 1-2 days
[2020-10-16 23:59] LABS: Basophils # (A) 0.1 k/uL (0-0.2); Basophils % (A) 1 %; Eosinophils # (A) 0.6 k/uL (0-0.7); Eosinophils % (A) 5 %; HCT 41.9 % (39.0-53.0); HGB 14.1 gm/dL (13.0-17.5); Lymphocytes # (A) 1.4 k/uL (1.0-4.8); Lymphocytes % (A) 11 %; MCH 30.4 pg (25.0-35.0); MCHC 33.7 g/dL (31.0-37.0); MCV 90.2 fL (80.0-100.0); Mean Platelet Volume 7.3; Monocytes # (A) 0.6 k/uL (0-1.0); Monocytes % (A) 4 %; Neutrophils # (A) 9.8 k/uL (1.3-7.7); Neutrophils % (A) 79 %; Platelet Count 197 k/uL (150-450); RBC 4.65 m/uL (4.30-5.90); RDW 13.6 % (11.5-15.5); WBC 12.5 k/uL (3.8-10.6)
[2020-10-17 00:06] LABS: ALT 20 U/L (4-49); AST 25 U/L (17-59); African American GFR (CKD) >90 (>60 ml/min/1.73 sqM); Alkaline Phosphatase 64 U/L (38-126); Anion Gap 11 mmol/L; Blood Urea Nitrogen 15 mg/dL (9-20); Calcium 9.2 mg/dL (8.4-10.2); Carbon Dioxide 21 mmol/L (22-30); Chloride 104 mmol/L (98-107); Glucose 125 mg/dL (74-99); Magnesium 1.8 mg/dL (1.6-2.3); Non-African American GFR(CKD) >90 (>60 ml/min/1.73 sqM); Potassium 3.3 mmol/L (3.5-5.1); Sodium 136 mmol/L (137-145); Total Bilirubin 0.4 mg/dL (0.2-1.3); Total Protein 6.5 g/dL (6.3-8.2)
[2020-10-17] MEDS ORDERED: POTASSIUM CHLORIDE ER 20 MEQ TAB.ER PO STA (00:25)
[2020-10-17 01:10] VITALS: BP 121/74; PULSE 74; TEMP 98.3
== END 2020-10-17 01:00 | disposition home or self-care (01) ==
LOC: EC 23:02
DX: I10 Essential (primary) hypertension (principal); E78.5 Hyperlipidemia, unspecified; F41.9 Anxiety disorder, unspecified; Z79.82 Long term (current) use of aspirin; F12.90 Cannabis use, unspecified, uncomplicated
CPT/HCPCS: 36415; 80053; 83735; 84484; 85025; 93005; 99285

== ENCOUNTER → 2021-02-20 | Outpatient (CLI) | payer OTHER ==
[2021-02-20 15:15] LABS: Basophils # (A) 0.07 X 10*3/uL (0.00-0.10); Basophils % (A) 0.6 %; Eosinophils # (A) 0.57 X 10*3/uL (0.04-0.35); Eosinophils % (A) 5.2 %; HCT 43.4 % (39.6-50.0); HGB 14.7 g/dL (13.0-17.0); Lymphocytes # (A) 2.16 X 10*3/uL (0.90-5.00); Lymphocytes % (A) 19.6 %; MCH 31.1 pg (27.0-32.0); MCHC 33.9 g/dL (32.0-37.0); MCV 91.8 fL (80.0-97.0); Mean Platelet Volume 10.4 fL (9.5-12.2); Monocytes # (A) 1.09 X 10*3/uL (0.20-1.00); Monocytes % (A) 9.9 %; Neutrophils # (A) 7.08 X 10*3/uL (1.80-7.70); Neutrophils % (A) 64.3 %; Platelet Count 268 X 10*3/uL (140-440); RBC 4.73 X 10*6/uL (4.40-5.60); RDW 13.2 % (11.5-14.5); WBC 11.01 X 10*3/uL (4.50-10.00)
[2021-02-20 22:00] LABS: African American GFR (CKD) 95.5 (60.0-200.0); Albumin 4.7 g/dL (3.80-4.90); Albumin/Globulin Ratio 1.96 (1.60-3.17); Anion Gap 13.8 mmol/L (4.00-12.00); BUN/Creat Ratio 15.45 Ratio (12.00-20.00); Calcium 9.6 mg/dL (8.7-10.3); Carbon Dioxide 20.2 mmol/L (21.6-31.8); Globulin 2.4 g/dL (1.6-3.3); Non-African American GFR(CKD) 82.4 (60.0-200.0); Potassium 4.2 mmol/L (3.5-5.5); Total Bilirubin 0.5 mg/dL (0.3-1.2); Total Protein 7.1 g/dL (6.2-8.2)
[2021-02-20 22:04] LABS: Digoxin 0.2 ng/mL (0.8-2.0)
[2021-02-20 22:09] LABS: T4, Free (Free Thyroxine) 1.3 ng/dL (0.80-1.80)
== END | disposition home or self-care (01) ==
LOC: LABWHC1 08:44
PROVIDERS: ATTEND Internal Medicine Cardiovascular Disease
DX: I10 Essential (primary) hypertension (principal)
CPT/HCPCS: 36415; 80053; 80162; 84439; 84443; 85025

== ENCOUNTER 2025-02-28 16:22 | Observation (INO) | payer OTHER ==
--- NOTE | 2025-02-28 17:58 | ED ---
General Adult HPI - General Chief complaint: Abdominal Pain Stated complaint: Stomach pressure/abn labs Time Seen by Provider: 02/28/25 17:26 Source: patient, RN notes reviewed, old records reviewed Mode of arrival: ambulatory Limitations: no limitations - History of Present Illness Initial comments: 44-year-old male history of hypertension and previous history of aortic dissection status postrepair at [facility] in 2019. Patient presenting with elevated blood pressure. Patient states this has happened to him once before and was related to his potassium level. Patient denies chest pain. He had some vague upper abdominal discomfort which is not present currently. Patient states his blood pressure was 193/100 at home. - Related Data Home Medications Medication Instructions Recorded Confirmed ALPRAZolam [Xanax] 0.5 mg PO DIRECTED PRN 02/04/20 02/04/20 Aspirin [Adult Low Dose Aspirin EC] 81 mg PO BID 02/04/20 02/04/20 Digoxin [Lanoxin] 0.125 mcg PO TUTHSA 02/04/20 02/04/20 Ferrous Sulfate [Feosol] 325 mg PO DAILY 02/04/20 02/04/20 Metoprolol Succinate [Toprol XL] 200 mg PO DAILY 02/04/20 02/04/20 Multivitamin [Multivitamins Adult 1 each PO DAILY 02/04/20 02/04/20 Gummies] amLODIPine BESYLATE 5 mg PO BID 02/04/20 02/04/20 cloNIDine HCL [Catapres] 0.1 mg PO TID 02/04/20 02/04/20 oxyCODONE-APAP 10-325MG [Percocet 1 tab PO Q6HR PRN 02/04/20 02/04/20 10-325 mg] Allergies Allergy/AdvReac Type Severity Reaction Status Date / Time No Known Allergies Allergy Verified 02/28/25 16:41 Review of Systems ROS Statement: Those systems with pertinent positive or pertinent negative responses have been documented in the HPI. ROS Other: All systems not noted in ROS Statement are negative. Past Medical History Past Medical History: Hyperlipidemia, Hypertension, Sleep Apnea/CPAP/BIPAP Additional Past Medical History / Comment(s): aortic disection History of Any Multi-Drug Resistant Organisms: None Reported Past Surgical History: Cholecystectomy Past Psychological History: Anxiety Smoking Status: Never smoker Past Alcohol Use History: None Reported Past Drug Use History: Marijuana General Exam Limitations: no limitations General appearance: alert, in no apparent distress Head exam: Present: atraumatic, normocephalic Eye exam: Present: normal appearance, PERRL Neck exam: Present: normal inspection. Absent: tenderness Respiratory exam: Present: normal lung sounds bilaterally. Absent: respiratory distress, wheezes Cardiovascular Exam: Present: regular rate, normal rhythm GI/Abdominal exam: Present: soft. Absent: distended, tenderness, guarding, rebound Extremities exam: Present: normal inspection, normal capillary refill Neurological exam: Present: alert, oriented X3, CN II-XII intact. Absent: motor sensory deficit Skin exam: Present: warm, intact. Absent: cyanosis Course Vital Signs 02/28/25 02/28/25 02/28/25 16:35 18:53 20:06 Temperature 98.5 F Pulse Rate 60 58 L 58 L Respiratory 18 20 18 Rate Blood Pressure 137/77 142/81 153/87 O2 Sat by Pulse 98 100 100 Oximetry Medical Decision Making - Medical Decision Making Was pt. sent in by a medical professional or institution ([facility] Downing, [facility], urgent care, hospital, or fpc...) When possible be specific @ -No Did you speak to anyone other than the patient for history (EMS, parent, family, police, friend...)? What history was obtained from this source @ -No Did you review nursing and triage notes (agree or disagree)? Why? @ -I reviewed and agree with nursing and triage notes Were old charts reviewed (outside hosp., previous admission, EMS record, old EKG, old radiological studies, urgent care reports/EKG's, fpc records)? Report findings @ -No old charts were reviewed Differential diagnosis, elevated blood pressure, hypertensive urgency, hypertensive emergency EKG interpreted by me (3pts min.). @ -Sinus bradycardia rate of 52, low voltage, MO interval 169, QRS duration 90, QTc [address] segment elevation. X-rays interpreted by me (1pt min.). @ None done CT interpreted by me (1pt min.). @CT aorta shows persistent dissection similar compared to 2020 U/S interpreted by me (1pt. min.). @ -None done What testing was considered but not performed or refused? (CT, X-rays, U/S, labs)? Why? @ -None What meds were considered but not given or refused? Why? @ -None Did you discuss the management of the patient with other professionals (professionals i.e. Dr., PA, [employer], lab, RT, psych nurse, social services designee, head inspector, teacher, credit officer, supportive employment case manager)? Give summary @Case discussed with Dr. Kirk, will admit Was smoking cessation discussed for >3mins.? @ -No Was critical care preformed (if so, how long)? @ -No Were there social determinants of health that impacted care today? How? (Homelessness, low income, unemployed, alcoholism, drug addiction, transportation, low edu. Level, literacy, decrease access to med. care, fci, rehab)? @ -No Was there de-escalation of care discussed even if they declined (Discuss DNR or withdrawal of care, Hospice)? DNR status @ -No What co-morbidities impacted this encounter? (DM, HTN, Smoking, COPD, CAD, Cancer, CVA, ARF, Chemo, Hep., AIDS, mental health diagnosis, sleep apnea, morbid obesity)? @ -Hypertension, history of aortic dissection status postrepair Was patient admitted / discharged? Hospital course, mention meds given and route, prescriptions, significant lab abnormalities, going to OR and other pertinent info. @ -[44-year-old male presenting for evaluation of elevated blood pressure. Patient did not have any severe chest or abdominal pain no back pain. He did have a vague abdominal discomfort. His EKG shows sinus bradycardia without ST segment elevation. Patient had a normal CBC, normal CMP, initial troponin was minimally elevated at 0.04. I did perform CT to evaluate for aortic pathology. This shows persistent unchanged dissection flap from 2020. No acute findings. Patient blood pressure is mildly elevated in the emergency department this will be monitored. He will have serial cardiac enzymes to trend the minimally elevated initial troponin. Patient admitted to his primary care provider. Cardiology placed on consult. Undiagnosed new problem with uncertain prognosis? @ -No Drug Therapy requiring intensive monitoring for toxicity (Heparin, Nitro, Insulin, Cardizem)? @ -No Were any procedures done? @ -No Diagnosis/symptom? @Hypertension, troponin elevation Acute, or Chronic, or Acute on Chronic? @ -[Acute Uncomplicated (without systemic symptoms) or Complicated (systemic symptoms)? @ -Default Side effects of treatment? @ -No Exacerbation, Progression, or Severe Exacerbation? @ -No Poses a threat to life or bodily function? How? (Chest pain, [place], [place], pneumonia, PE, COPD, DKA, ARF, appy, cholecystitis, CVA, Diverticulitis, Homicidal, Suicidal, threat to staff... and all critical care pts) @ -Yes, ACS, hypertensive emergency - Lab Data Result diagrams: 02/28/25 18:00 02/28/25 18:00 Lab Results 02/28/25 02/28/25 02/28/25 Range/Units 18:00 18:00 18:00 WBC 8.39 (4.50-10.00) 10*3/uL RBC 5.25 (4.40-5.60) 10*6/uL Hgb 16.1 (13.0-17.0) g/dL Hct 45.3 (39.6-50.0) % MCV 86.3 (80.0-97.0) fL MCH 30.7 (27.0-32.0) pg MCHC 35.5 (32.0-37.0) g/dL Plt Count 248 (140-440) 10*3/uL MPV 10.1 (9.5-12.2) fL Immature Gran % (Auto) 0.5 % Neutrophils % 66.2 % Lymphocytes % 20.5 % Monocytes % 7.7 % Eosinophils % 3.9 % Basophils % 1.2 % Immature Gran # 0.04 (0.00-0.04) 10*3/uL Neutrophils # 5.55 (1.80-7.70) 10*3/uL Lymphocytes # 1.72 (0.90-5.00) 10*3/uL Monocytes # 0.65 (0.20-1.00) 10*3/uL Eosinophils # 0.33 (0.04-0.35) 10*3/uL Basophils # 0.10 (0.00-0.10) 10*3/uL PT 11.7 (10.0-12.5) sec INR 1.1 (<1.2) APTT 24.2 (22.0-30.0) sec Sodium 134 L (137-145) mmol/L Potassium 4.6 (3.5-5.1) mmol/L Chloride 105 (98-107) mmol/L Carbon Dioxide 18 L (22-30) mmol/L Anion Gap 11 mmol/L BUN 18 (9-20) mg/dL Creatinine 1.18 (0.66-1.25) mg/dL Est GFR (CKD-EPI)AfAm 85 (>60 ml/min/1.73 sqM) Est GFR (CKD-EPI)NonAf 74 (>60 ml/min/1.73 sqM) Glucose 91 (74-99) mg/dL Calcium 10.1 (8.4-10.2) mg/dL Total Bilirubin 1.1 (0.2-1.3) mg/dL AST 26 (17-59) U/L ALT 18 (4-49) U/L Alkaline Phosphatase 76 (38-126) U/L Troponin I (0.000-0.034) ng/mL Total Protein 7.6 (6.3-8.2) g/dL Albumin 4.6 (3.5-5.0) g/dL Lipase 98 (23-300) U/L 02/28/25 02/28/25 Range/Units 18:00 20:22 WBC (4.50-10.00) 10*3/uL RBC (4.40-5.60) 10*6/uL Hgb (13.0-17.0) g/dL Hct (39.6-50.0) % MCV (80.0-97.0) fL MCH (27.0-32.0) pg MCHC (32.0-37.0) g/dL Plt Count (140-440) 10*3/uL MPV (9.5-12.2) fL Immature Gran % (Auto) % Neutrophils % % Lymphocytes % % Monocytes % % Eosinophils % % Basophils % % Immature Gran # (0.00-0.04) 10*3/uL Neutrophils # (1.80-7.70) 10*3/uL Lymphocytes # (0.90-5.00) 10*3/uL Monocytes # (0.20-1.00) 10*3/uL Eosinophils # (0.04-0.35) 10*3/uL Basophils # (0.00-0.10) 10*3/uL PT (10.0-12.5) sec INR (<1.2) APTT (22.0-30.0) sec Sodium (137-145) mmol/L Potassium (3.5-5.1) mmol/L Chloride (98-107) mmol/L Carbon Dioxide (22-30) mmol/L Anion Gap mmol/L BUN (9-20) mg/dL Creatinine (0.66-1.25) mg/dL Est GFR (CKD-EPI)AfAm (>60 ml/min/1.73 sqM) Est GFR (CKD-EPI)NonAf (>60 ml/min/1.73 sqM) Glucose (74-99) mg/dL Calcium (8.4-10.2) mg/dL Total Bilirubin (0.2-1.3) mg/dL AST (17-59) U/L ALT (4-49) U/L Alkaline Phosphatase (38-126) U/L Troponin I 0.041 H* 0.045 H* (0.000-0.034) ng/mL Total Protein (6.3-8.2) g/dL Albumin (3.5-5.0) g/dL Lipase (23-300) U/L Disposition Clinical Impression: Hypertension, Elevated troponin Disposition: ADMITTED IP TO THIS HOSP Condition: Stable Is patient prescribed a controlled substance at d/c from ED?: No Referrals: Jak Kirk MD [Primary Care Provider] - 1-2 days Time of Disposition: 22:12
[2025-02-28 18:06] LABS: Basophils # (A) 0.10 10*3/uL (0.00-0.10); Basophils % (A) 1.2 %; Eosinophils # (A) 0.33 10*3/uL (0.04-0.35); Eosinophils % (A) 3.9 %; HCT 45.3 % (39.6-50.0); HGB 16.1 g/dL (13.0-17.0); Lymphocytes # (A) 1.72 10*3/uL (0.90-5.00); Lymphocytes % (A) 20.5 %; MCH 30.7 pg (27.0-32.0); MCHC 35.5 g/dL (32.0-37.0); MCV 86.3 fL (80.0-97.0); Monocytes # (A) 0.65 10*3/uL (0.20-1.00); Monocytes % (A) 7.7 %; Neutrophils # (A) 5.55 10*3/uL (1.80-7.70); Neutrophils % (A) 66.2 %; Platelet Count 248 10*3/uL (140-440); RBC 5.25 10*6/uL (4.40-5.60); RDW 13.1 % (11.5-14.5); WBC 8.39 10*3/uL (4.50-10.00)
[2025-02-28 18:26] LABS: ALT 18 U/L (4-49); African American GFR (CKD) 85 (>60 ml/min/1.73 sqM); Albumin 4.6 g/dL (3.5-5.0); Anion Gap 11 mmol/L; Blood Urea Nitrogen 18 mg/dL (9-20); Calcium 10.1 mg/dL (8.4-10.2); Carbon Dioxide 18 mmol/L (22-30); Chloride 105 mmol/L (98-107); Glucose 91 mg/dL (74-99); Lipase 98 U/L (23-300); Non-African American GFR(CKD) 74 (>60 ml/min/1.73 sqM); Sodium 134 mmol/L (137-145); Total Protein 7.6 g/dL (6.3-8.2)
[2025-02-28 18:32] LABS: AST 26 U/L (17-59); Alkaline Phosphatase 76 U/L (38-126); Potassium 4.6 mmol/L (3.5-5.1)
[2025-02-28 18:47] LABS: INR 1.1 (<1.2); Partial Thromboplastin Time 24.2 sec (22.0-30.0); Prothrombin Time 11.7 sec (10.0-12.5)
--- NOTE | 2025-02-28 20:17 | CT ---
EXAMINATION TYPE: CT noncontrast chest abdomen pelvis. CT angio thor/abd pel aorta DATE OF EXAM: 02/28/2025 7:45 PM COMPARISON: Prior CT study 09/15/2019.. CLINICAL INDICATION: Male, 44 years old with history of Abdominal pain, history of aortic dissection; PHH, c/o of elevated BP x the last few days. Pt states his BP was 193/100 earlier. Pt states he does have slight abdominal pain in his upper abdomen, hx of aortic dissection TECHNIQUE: Noncontrast CT chest followed by CT angiogram chest abdomen pelvis. A noncontrast CT chest Multiple a xial CT images of the chest, abdomen, and pelvis were obtained prior to and after the administration of IV contrast. 3-D reformats and maximum intensity projection format were performed on a separate Expanite rkstation. . Contrast used:100 ml mL of Isovue 370 with IV Contrast, CT DLP: 4136.9 mGycm, Automated exposure control for dose reduction was used. FINDINGS: Noncontrast portion of the study demonstrates no evidence of intramural hematoma. There post surgical changes of previous thoracic aortic aneurysm repair. Median sternotomy wires present. Heart size is within normal limits. No pericardial effusion. Coronary artery calcifications. There is a dissection flap involving the descending thoracic aorta, thoracic aortic arch and descending thoracic aorta. Por tion of the dissection flap possibly extends into the right brachycephalic, left common carotid and l eft subclavian artery origins. Mid descending thoracic aorta measures approximately 3.5 x 3.4 cm. Imaging through the lungs and trace no acute focal consolidation. No pleural effusion or pneumothorax . No new suspicious or enlarging pulmonary nodule. No pathologic mediastinal or axillary lymphadenopa thy. Abdomen/pelvis: Liver acutely unremarkable. Gallbladder is surgically absent. Pancreas unremarkable. Spleen normal in size and morphology. No suspicious adrenal gland nodule. 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 Left kidney without hydronephrosis. No pathologic retroperitoneal or mesenteric lymphadenopathy. Imaging through the gastric intestinal tract demonstrates no evidence of small bowel obstruction. Sto mach under distended but otherwise unremarkable. Appendix unremarkable. Urinary bladder unremarkable. No significant free fluid or free air in the abdomen/pelvis. Dissection flap extends into the abdominal aorta. The true lumen supplies the celiac artery and SMA a s well as the left renal artery. The right renal artery is supplied by the false lumen and there is a dissection flap visualized extending into the right renal artery. Dissection extends into the left c ommon iliac and left external iliac arteries. Iliac arteries otherwise patent bilaterally. Bilateral partially visualized superficial femoral arteries appear patent. No acute osseous abnormality. IMPRESSION: No evidence of thoracic aortic rupture. Previous ascending thoracic aortic repair with persistent dis section involving the ascending thoracic aorta, thoracic aortic arch, descending thoracic aorta, abdo cheo aorta and left common iliac artery as above. Dissection flap likely extends into the origins of the main thoracic aortic arch branches. True lumen supplies the left kidney, celiac artery and SMA. [facility], , 02/28/2025 8:15 PM
[2025-02-28] MEDS ORDERED: HYDROmorphone 0.5 MG/0.5 ML SYRINGE IVP PRN (22:05)
[2025-02-28] MEDS ORDERED: ACETAMINOPHEN TAB 325 MG TAB PO PRN (22:05)
[2025-02-28] MEDS ORDERED: NALOXONE 0.4 MG/ML 1 ML VIAL IV PRN (22:05)
[2025-02-28] MEDS: ASPIRIN 325 MG TAB PO STA (22:50)
[2025-02-28] MEDS: amLODIPine 10 MG TAB PO STA (22:50)
[2025-02-28] MEDS: SODIUM CHLORIDE 0.9% 1,000 ML IV SCH (22:51)
[2025-03-01] MEDS: METOPROLOL SUCCINATE (ER) 100 MG TAB.ER.24H PO SCH (08:26)
[2025-03-01] MEDS: amLODIPine 10 MG TAB PO SCH (09:32)
[2025-03-01] MEDS: LOSARTAN 25 MG TAB PO SCH (09:32)
--- NOTE | 2025-03-01 10:06 | P.CRDCN ---
History of Present Illness Consult date: 03/01/25 Consult reason: chest pain History of present illness: This is a 44-year-old male patient of Dr. Robel Bruno with past medical history of aortic dissection status post surgery, history of hypertension, peripheral vascular disease, premature coronary artery disease in family. We have been asked to evaluate the patient for chest pain. Patient states that he follows on every 2 years with [facility] with Dr. Soler. He states that he went last year and everything was fine at that time. Patient states that his blood pressure has been high the last couple of days and he has been fasting. He states he has not been fasting for 48 hours. He states he has been taking all of his medications as directed. Regarding blood pressure, he states systolic of 130-140 is usually a little high for him. Yesterday his blood pressure was up to 193/100. He denies lightheadedness or dizziness, no chest pain and no shortness of breath. He states he only feels hungry at this time. Patient was last seen in the office on 11/16/2024 and at that time blood pressure was noted to be normal but has had poorly controlled recently and plan was to wait and see how his blood pressure reading spans possibly adding losartan. Blood pressure is 156/75, heart rate 55, pulse ox 98% on room air. -EKG: Sinus bradycardia -CT angio thoracic, abdominal and pelvic: No evidence of thoracic aortic rupture. Previous ascending thoracic aortic repair with persistent dissection involving the ascending thoracic aorta, thoracic aortic arch and descending thoracic aorta, abdominal aorta and left common iliac artery. Dissection flap likely extends into the origins of the main thoracic aortic arch branches. True lumen supplies the left kidney, celiac artery and SMA. -Laboratory studies: Troponin 0.041, 0.045, 0.013, 0.012. CBC CMP unremarkable. -Home cardiac medications: Confirmed with patient: Amlodipine 10 mg daily, metoprolol succinate 200 mg daily, aspirin 162 mg daily, atorvastatin 40 mg daily -Echocardiogram performed in the office on 07/25/2024 revealed EF of 55%, moderate concentric left ventricular hypertrophy, ascending aorta postsurgical changes, mild mitral regurgitation, mild tricuspid regurgitation, normal PASP. -Low-level treadmill exercise stress test performed in the office on 02/14/2020 revealed fair exercise tolerance, no symptoms typical of angina. No dysrhythmias noted. Significant CAD cannot be excluded based on the study because the patient did not achieve 85% of the PMHR. However, at 60% of the PMHR, there was no ischemic EKG abnormalities. Review Of Systems: At the time of my exam: CONSTITUTIONAL: Denies fever or chills. HEENT: Denies blurred vision, vision changes, or eye pain. Denies hemoptysis CARDIOVASCULAR: Denies chest pain. Denies orthopnea. Denies PND. Denies palpitations RESPIRATORY: Denies shortness of breath. GASTROINTESTINAL: Denies abdominal pain. Denies nausea or vomiting. HEMATOLOGIC: Denies bleeding disorders. GENITOURINARY: Denies any blood in urine. SKIN: Denies puritis. Denies rash. Physical examination: Gen: This is a 44-year-old male in no acute distress. VS: reviewed HEENT: Head is atraumatic, normocephalic. Pupils equal, round. Sclerae is anicteric. NECK: Supple. No JVD. LUNGS: Clear to auscultation. No wheezes or rhonchi. No intercostal retractions. HEART: Regular rate and rhythm. No murmur. ABDOMEN: Soft No tenderness. EXTREMITIES: No pedal edema. No calf tenderness. NEUROLOGICAL: Patient is awake, alert and oriented x3. Assessment: Uncontrolled hypertension Chronic aortic dissection Peripheral vascular disease Family history of premature coronary artery disease Plan: Resume patient's home cardiac medications Add losartan 25 mg daily Obtain records from [facility] regarding aortic dissection Obtain blood pressure readings in both arms and legs Further recommendations to follow based upon clinical course Thank you kindly for this consultation. Nurse practitioner note has been reviewed, I agree with documented findings and plan of care. Patient was seen and examined. Past Medical History Past Medical History: Hyperlipidemia, Hypertension, Sleep Apnea/CPAP/BIPAP Additional Past Medical History / Comment(s): aortic disection History of Any Multi-Drug Resistant Organisms: None Reported Past Surgical History: Cholecystectomy Past Anesthesia/Blood Transfusion Reactions: No Reported Reaction Past Psychological History: Anxiety Smoking Status: Never smoker Past Alcohol Use History: None Reported Past Drug Use History: Marijuana Medications and Allergies Home Medications Medication Instructions Recorded Confirmed Type ALPRAZolam [Xanax] 0.5 mg PO DIRECTED PRN 02/04/20 02/04/20 History Aspirin [Adult Low Dose Aspirin EC] 81 mg PO BID 02/04/20 02/04/20 History Digoxin [Lanoxin] 0.125 mcg PO TUTHSA 02/04/20 02/04/20 History Ferrous Sulfate [Feosol] 325 mg PO DAILY 02/04/20 02/04/20 History Metoprolol Succinate [Toprol XL] 200 mg PO DAILY 02/04/20 02/04/20 History Multivitamin [Multivitamins Adult 1 each PO DAILY 02/04/20 02/04/20 History Gummies] amLODIPine BESYLATE 5 mg PO BID 02/04/20 02/04/20 History cloNIDine HCL [Catapres] 0.1 mg PO TID 02/04/20 02/04/20 History oxyCODONE-APAP 10-325MG [Percocet 1 tab PO Q6HR PRN 02/04/20 02/04/20 History 10-325 mg] Allergies Allergy/AdvReac Type Severity Reaction Status Date / Time No Known Allergies Allergy Verified 02/28/25 16:41 Physical Exam Vitals: Vital Signs Temp Pulse Pulse Resp BP BP Pulse Ox 03/01/25 01:18 98.2 F 60 19 152/65 99 03/01/25 01:14 62 15 157/86 95 02/28/25 23:40 62 18 142/87 98 02/28/25 20:06 58 L 18 153/87 100 02/28/25 18:53 58 L 20 142/81 100 02/28/25 16:35 98.5 F 60 18 137/77 98 Intake and Output 02/28/25 03/01/25 03/01/25 22:59 06:59 14:59 Other: # Voids 1 Weight 151.953 kg Results 02/28/25 18:00 02/28/25 18:00 Cardiac Enzymes 02/28/25 02/28/25 02/28/25 Range/Units 18:00 18:00 20:22 AST 26 (17-59) U/L Troponin I 0.041 H* 0.045 H* (0.000-0.034) ng/mL 02/28/25 03/01/25 Range/Units 23:35 02:26 AST (17-59) U/L Troponin I 0.013 <0.012 (0.000-0.034) ng/mL Coagulation 02/28/25 Range/Units 18:00 PT 11.7 (10.0-12.5) sec APTT 24.2 (22.0-30.0) sec CBC 02/28/25 Range/Units 18:00 WBC 8.39 (4.50-10.00) 10*3/uL RBC 5.25 (4.40-5.60) 10*6/uL Hgb 16.1 (13.0-17.0) g/dL Hct 45.3 (39.6-50.0) % Plt Count 248 (140-440) 10*3/uL Comprehensive Metabolic Panel 02/28/25 Range/Units 18:00 Sodium 134 L (137-145) mmol/L Potassium 4.6 (3.5-5.1) mmol/L Chloride 105 (98-107) mmol/L Carbon Dioxide 18 L (22-30) mmol/L BUN 18 (9-20) mg/dL Creatinine 1.18 (0.66-1.25) mg/dL Glucose 91 (74-99) mg/dL Calcium 10.1 (8.4-10.2) mg/dL AST 26 (17-59) U/L ALT 18 (4-49) U/L Alkaline Phosphatase 76 (38-126) U/L Total Protein 7.6 (6.3-8.2) g/dL Albumin 4.6 (3.5-5.0) g/dL Current Medications Generic Name Dose Route Start Last Admin Trade Name Freq PRN Reason Stop Dose Admin Acetaminophen 650 mg 02/28/25 22:05 Acetaminophen Tab 325 Mg Tab PO Q6HR PRN Mild Pain or Fever > 100.5 Hydromorphone HCl 0.5 mg 02/28/25 22:05 Hydromorphone 0.5 Mg/0.5 Ml Syringe IVP Q3HR PRN Moderate Pain (Scale 4 to 6) Sodium Chloride 1,000 mls @ 75 mls/hr 02/28/25 22:15 02/28/25 22:51 Saline 0.9% IV 75 mls/hr .[id number] WALT Administration Metoprolol Succinate 200 mg 03/01/25 09:00 03/01/25 08:26 Metoprolol Succinate (Er) 100 Mg Tab.Er.24h PO 200 mg DAILY WALT Administration Naloxone HCl 0.2 mg 02/28/25 22:05 Naloxone 0.4 Mg/Ml 1 Ml Vial IV Q2M PRN Opioid Reversal Intake and Output 02/28/25 03/01/25 03/01/25 22:59 06:59 14:59 Other: # Voids 1 Weight 151.953 kg 02/28/25 18:00 02/28/25 18:00
[2025-03-01] MEDS: ALPRAZolam 0.5 MG TAB PO PRN (12:03)
--- NOTE | 2025-03-01 17:04 | HP ---
HISTORY AND PHYSICAL CHIEF COMPLAINT: Elevated blood pressure. HISTORY OF PRESENT ILLNESS: This is another admission for this 44-year-old gentleman, who had a significant history in the past of a dissection of the abdominal aorta, which was treated in [place]. He checked his blood pressure at home and he found it to be very high. He came to the emergency room. He had no chest pain, abdominal pain, back pain, or any other symptoms. He came to the emergency room. His blood pressure is perfectly normal. REVIEW OF SYSTEMS: He had no chest pain, back pain, shortness of breath, diaphoresis, etc. Past medical history, family history, personal and social histories are otherwise unremarkable and noncontributory or unchanged. PHYSICAL EXAMINATION: VITAL SIGNS: Blood pressure 137/77. HEAD, EARS, EYES, NOSE, MOUTH AND THROAT: Normal. CHEST: Clear. CARDIAC: Normal. ABDOMEN: Soft and nontender. EXTREMITIES: Normal. NEUROLOGIC: He is intact. DIAGNOSES: He was admitted to the hospital with diagnoses; 1. Elevated blood pressure. 2. History of aortic dissection. PLAN: 1. Bedrest. 2. IV fluids. 3. Cardiology consult. MMODL / IJN: [id number] /
[2025-03-01 20:01] VITALS: RESP 16
--- NOTE | 2025-03-01 20:19 | PN ---
PROGRESS NOTE DATE OF SERVICE: 03/01/2025 CHIEF COMPLAINT: Hypertension and history of aortic dissection. HISTORY OF PRESENT ILLNESS: This gentleman is doing well. His blood pressure is doing fine. He has had no chest pain. He is probably stable. He is being further evaluated by Cardiology. PHYSICAL EXAMINATION: VITAL SIGNS: Normal. CHEST: Clear. CARDIAC: Normal. ABDOMEN: Soft, nontender. IMPRESSION: 1. Hypertension. 2. History of aortic dissection. PLAN: Continue to monitor his vital signs and increase activity. If he remains stable, he will probably go home tomorrow. MMODL / IJN: [id number] /
[2025-03-01] MEDS: ASPIRIN 81 MG PO SCH (20:35)
[2025-03-01] MEDS ORDERED: ATORVASTATIN 40 MG TAB PO SCH (21:00)
[2025-03-01] MEDS ORDERED: amLODIPine 10 MG TAB PO SCH (21:00)
[2025-03-01] MEDS: oxyCODONE-APAP 10-325MG 1 EACH TAB PO SCH (21:10)
[2025-03-02] MEDS: LOSARTAN 25 MG TAB PO STA (01:39)
[2025-03-02 07:28] VITALS: BP 130/71; PULSE 65; TEMP 98.3
[2025-03-02] MEDS: LOSARTAN 50 MG TAB PO SCH (08:53)
[2025-03-02] MEDS: ATORVASTATIN 40 MG TAB PO SCH (08:54)
[2025-03-02] MEDS ORDERED: ATORVASTATIN 40 MG TAB PO SCH (09:00)
[2025-03-02] MEDS ORDERED: ASPIRIN 81 MG PO SCH ×2 (09:00→21:00)
--- NOTE | 2025-03-02 15:35 | P.PN ---
Subjective Progress Note Date: 03/02/25 This is a 44-year-old male patient of Dr. Robel Bruno with past medical history of aortic dissection status post surgery, history of hypertension, peripheral vascular disease, premature coronary artery disease in family. We have been asked to evaluate the patient for chest pain. Patient states that he follows on every 2 years with [facility] with Dr. Soler. He states that he went last year and everything was fine at that time. Patient states that his blood pressure has been high the last couple of days and he has been fasting. He states he has not been fasting for 48 hours. He states he has been taking all of his medications as directed. Regarding blood pressure, he states syst olic of 130-140 is usually a little high for him. Yesterday his blood pressure was up to 193/100. He denies lightheadedness or dizziness, no chest pain and no shortness of breath. He states he only feels hungry at this time. Patient was last seen in the office on 11/16/2024 and at that time blood pressure was noted to be normal but has had poorly controlled recently and plan was to wait and see how his blood pressure reading spans possibly adding losartan. Blood pressure is 156/75, heart rate 55, pulse ox 98% on room air. -EKG: Sinus bradycardia -CT angio thoracic, abdominal and pelvic: No evidence of thoracic aortic rupture. Previous ascending thoracic aortic repair with persistent dissection involving the ascending thoracic aorta, thoracic aortic arch and descending thoracic aorta, abdominal aorta and left common iliac artery. Dissection flap likely extends into the origins of the main thoracic aortic arch branches. True lumen supplies the left kidney, celiac artery and SMA. -Laboratory studies: Troponin 0.041, 0.045, 0.013, 0.012. CBC CMP unremarkable. -Home cardiac medications: Confirmed with patient: Amlodipine 10 mg daily, metoprolol succinate 200 mg daily, aspirin 162 mg daily, atorvastatin 40 mg daily -Echocardiogram performed in the office on 07/25/2024 revealed EF of 55%, moderate concentric left ventricular hypertrophy, ascending aorta postsurgical changes, mild mitral regurgitation, mild tricuspid regurgitation, normal PASP. -Low-level treadmill exercise stress test performed in the office on 02/14/2020 revealed fair exercise tolerance, no symptoms typical of angina. No dysrhythmias noted. Significant CAD cannot be excluded based on the study because the patient did not achieve 85% of the PMHR. However, at 60% of the PMHR, there was no ischemic EKG abnormalities. Progress Note BP better with losartan 50mg, No new chest pain, SOB, doing well. Equal BP in b/l UE and LE No lightheadedness or dizziness. Patient is very eager to go home No records available from [facility] yet after requesting it twice. Physical examination: Gen: This is a 44-year-old male in no acute distress. VS: reviewed HEENT: Head is atraumatic, normocephalic. Pupils equal, round. Sclerae is anicteric. NECK: Supple. No JVD. LUNGS: Clear to auscultation. No wheezes or rhonchi. No intercostal retractions. HEART: Regular rate and rhythm. No murmur. ABDOMEN: Soft No tenderness. EXTREMITIES: No pedal edema. No calf tenderness. NEUROLOGICAL: Patient is awake, alert and oriented x3. Assessment: Uncontrolled hypertension Chronic aortic dissection Peripheral vascular disease Family history of premature coronary artery disease Plan: Continue current medical regimen with losartan 50, aspirin, amlodipine 10, Lipitor 40, metoprolol succinate 200 mg Outpatient follow-up with Dr. Anthony next 1 to 2 weeks. Cleared from cardiology Objective - Vital Signs Vital signs: Vital Signs Temp 98.3 F 03/02/25 07:00 Pulse 65 03/02/25 07:00 Resp 16 03/02/25 07:00 BP 130/71 03/02/25 07:00 Pulse Ox 99 03/02/25 07:00 FiO2 Intake & Output 03/01/25 03/02/25 03/02/25 18:59 06:59 18:59 Intake Total 118 118 Balance 118 118 Intake: Oral 118 118 Other: Voiding Method Toilet # Voids 2 - Labs CBC & Chem 7: 02/28/25 18:00 02/28/25 18:00
--- NOTE | 2025-03-02 19:17 | DS ---
DISCHARGE SUMMARY CHIEF COMPLAINT: Elevated blood pressure and history of aortic dissection. HISTORY OF PRESENT ILLNESS AND PHYSICAL EXAM: Details of this man's history and physical can be found in the initial workup. LABORATORY STUDIES: While he was in the hospital, he had laboratory studies, details of which can be found in the laboratory section of his chart. COURSE IN THE HOSPITAL: After admission, he was placed on bedrest and started on intravenous fluids and telemetry. He was seen by Cardiology. It turns out his blood pressure was normal. All of his other studies were normal. With no further studies planned, it was felt he could be discharged on the . He will go home on his usual activity, diet, medications, and follow up in the office in a few days. FINAL DIAGNOSES: 1. Hypertension. 2. History of aortic dissection. OPERATIONS: None. CONSULTATION: Cardiology. TOMMY / ISAAC: [id number] /
== END 2025-03-02 14:53 | disposition home or self-care (01) ==
LOC: EC 16:22 → 6NMEDSUR 22:06 → 1SOBS 03-01 00:38 → 6NMEDSUR 03-01 14:22
PROVIDERS: ADMIT Family Medicine; ATTEND Family Medicine
DX: I10 Essential (primary) hypertension (principal); I71.00 Dissection of unspecified site of aorta; R00.1 Bradycardia, unspecified; I73.9 Peripheral vascular disease, unspecified; E78.5 Hyperlipidemia, unspecified; F41.9 Anxiety disorder, unspecified; G47.30 Sleep apnea, unspecified; Z79.82 Long term (current) use of aspirin; Z79.899 Other long term (current) drug therapy; Z82.49 Family history of ischemic heart disease and other diseases of the circulatory system
CPT/HCPCS: 99284; 36415; 93005; 80053; 83690; 84484 ×2; 85025; 85610; 85730; 71275; 74174; G0378 ×3; Q9967